=== PATIENT | male | born 1970 ===

== ENCOUNTER 2018-09-09 08:14 | Day surgery (SDC) | payer OTHER ==
[2018-09-09 10:45] VITALS: BMI 34.8
[2018-09-09 10:56] VITALS: PULSE 72; RESP 19; TEMP 96.4
[2018-09-09] MEDS ORDERED: Propofol 10 mg/ml Inj (20 ML) ONE (11:48)
[2018-09-09] MEDS ORDERED: Lidocaine Hydrochloride 5 ML INJ ONE (11:50)
--- NOTE | 2018-09-09 11:53 | CP.SDSHP ---
Same Day Surgery H & P - History Proposed Procedure: EGD Pre-Op Diagnosis: SEE NOTES - Previous Medical/Surgical History Cardiac: Hypertension Endocrine/Metabolic: Other Misc: Other Pain: 4.Moderate Pain - Allergies Allergies: Allergies No Known Allergies Allergy (Verified 09/09/18 10:36) - Physical Exam General Appearance: N Vital Signs: Vital Signs 09/09/18 10:48 Temperature 96.4 F L Pulse Rate 72 Respiratory 19 Rate Blood Pressure 154/73 H O2 Sat by Pulse 97 Oximetry Mental Status: Alert & Oriented x3 Neuro: WNL Heart: Other Lungs: WNL GI: Other - {Optional Preform as Required} Breast: WNL Abdomen: Other Rectal: Other Integument: WNL : WNL Ortho: WNL ENT: WNL - Impression Pt. Evaluated Today:Candidate for Anesthesia & Procedure: Yes - Date & Time Time: 11:53 Short Stay Discharge - Short Stay Discharge Admitting Diagnosis/Reason for Visit: FUNCTIONAL DYSPEPSIA Disposition: HOME/ ROUTINE
[2018-09-09 11:54] VITALS: O2SAT 100
[2018-09-09] MEDS ORDERED: Belladonna-Phenobarbital PO ONE (11:54)
[2018-09-09] MEDS ORDERED: Pantoprazole 40 mg EC Tab PO ONE (12:15)
[2018-09-09 14:02] VITALS: BP 139/76
== END 2018-09-09 13:00 | disposition home or self-care (01) ==
LOC: C.ENDO 08:14
PROVIDERS: ATTEND Specialist
DX: K21.0 Gastro-esophageal reflux disease with esophagitis (principal); K22.8 Other specified diseases of esophagus; K29.50 Unspecified chronic gastritis without bleeding; K26.9 Duodenal ulcer, unspecified as acute or chronic, without hemorrhage or perforation; K29.80 Duodenitis without bleeding; K44.9 Diaphragmatic hernia without obstruction or gangrene; K30 Functional dyspepsia; I10 Essential (primary) hypertension
CPT/HCPCS: 43239; 88305; 88342; 93005; J2704